=== PATIENT | male | born 1935 | race Asian ===

== ENCOUNTER 2019-01-20 20:28 | Inpatient (IN) | payer BC, MEDICAID ==
[~2019-01-20] VITALS: Ht 165.1 cm; Wt 73.0 kg
--- NOTE | 2019-01-20 20:35 | NUR ---
PT RECEIVED TRACH TO VENT, PT PLACED ON A LEVIN VENT ON SETTINGS GIVEN BY EMT. PT IS ON SETTINGS OF A/C 18, VT 500, PEEP +5, AND 40% FIO2. PORTEX #8 CUFFED TRACH IS PATENT AND SECURE. PT IS AWAKE AND ALERT, PT IS TOLERATING VENT WELL, NO SOB NOTED. BVM AT BEDSIDE, VENT PLUGGED INTO RED OUTLET. SUCTION PRN. WILL CONTINUE TO MONITOR.
--- NOTE | 2019-01-20 20:50 | NUR ---
Dr. Betancourt at bedside for MSE.
[2019-01-20 21:10] LABS: ABG BASE EXCESS 6.4 mmol/L; ABG HCO3 31.1 mmol/L; ABG PCO2 45.8 mmHg (35.0-45.0); ABG SITE LEFT RADIAL; MetHb 0.3 % (0.0-1.5); O2Hb 96.3 % (94.0-97.0); VENT MODE VENT - A/C; VT, ABG 500 mL
[2019-01-20] MEDS ORDERED: PIPE4.5F2 IV (21:22)
[2019-01-20] MEDS ORDERED: PRAV10TA40 GT (21:22)
[2019-01-20] MEDS ORDERED: LOSA50TA39 GT (21:22)
[2019-01-20] MEDS ORDERED: MAGN400O6 PO (21:22)
[2019-01-20] MEDS ORDERED: NA P133E RC (21:22)
[2019-01-20] MEDS ORDERED: METO100T14 GT (21:22)
[2019-01-20] MEDS ORDERED: novolog SUBCUT (21:22)
[2019-01-20] MEDS ORDERED: PANT40TA4 GT (21:22)
[2019-01-20] MEDS ORDERED: ACET-2154 PO (21:22)
[2019-01-20] MEDS ORDERED: DOCU100C36 GT (21:22)
[2019-01-20] MEDS ORDERED: CHLO473M3 PO (21:22)
[2019-01-20] MEDS ORDERED: ENOX40DI SQ (21:22)
[2019-01-20] MEDS ORDERED: BLOO-144 MC (21:22)
[2019-01-20] MEDS ORDERED: BISA10SU61 RC (21:22)
[2019-01-20] MEDS ORDERED: ALBU2.5V38 IH ×2 (21:22)
[2019-01-20 21:26] LABS: BASOPHILS % (AUTO) 0.3 % (0.0-2.0); EOSINOPHILS # (AUTO) 0.1 K/uL (0.0-0.7); EOSINOPHILS % (AUTO) 1.1 % (0.0-7.0); HEMATOCRIT 27.2 % (36.7-47.1); HEMOGLOBIN 8.7 g/dL (12.5-16.3); LYMPHOCYTES # (AUTO) 0.8 K/uL (20.0-40.0); LYMPHOCYTES % (AUTO) 8.4 % (20.5-51.5); MEAN CORPUSCULAR HEMOGLOBIN 30.2 uug (23.8-33.4); MEAN CORPUSCULAR HGB CONC 32 g/dL (32.5-36.3); MEAN CORPUSCULAR VOLUME 94.5 fL (73.0-96.2); MONOCYTES # (AUTO) 0.7 K/uL (2.0-10.0); NEUTROPHILS # (AUTO) 8.4 K/uL (1.8-8.9); NEUTROPHILS % (AUTO) 83.2 % (38.5-71.5); PLATELET COUNT (AUTO) 206 K/uL (152-348); RED BLOOD CELL COUNT(AUTO) 2.88 MIL/uL (4.06-5.63); WHITE BLOOD COUNT (AUTO) 10.1 K/uL (3.6-10.2)
[2019-01-20 21:28] LABS: CARBON DIOXIDE 32 mmol/L (21-32); CHLORIDE 113 mmol/L (98-107); CREATININE 1.4 mg/dL (0.6-1.3); GLUCOSE 132 mg/dL (74-106); POTASSIUM 4.1 mmol/L (3.5-5.1); UREA NITROGEN, BLOOD 49 mg/dL (7-18)
[2019-01-20 21:34] LABS: ALANINE AMINOTRANSFERASE 156 U/L (16-63); ALKALINE PHOSPHATASE 111 U/L (50-136); ASPARTATE AMINOTRANSFERASE 126 U/L (15-37); BILIRUBIN,DIRECT 0.1 mg/dL (0.0-0.2); BILIRUBIN,TOTAL 0.3 mg/dL (0.2-1.0); TOTAL PROTEIN, SERUM 6.1 g/dL (6.4-8.2)
--- NOTE | 2019-01-20 21:34 | NUR ---
ON THE PHONE WITH TYE EDGE FROM [facility] END[facility]ED PT IS FROM SUB ACUTE UNIT RN WILL BE FAXING SOME PAPERWORK CALL BACK NUMBER [phone]
[2019-01-20 21:53] LABS: NEUTROPHILS % (MANUAL) 80 % (42-75)
--- NOTE | 2019-01-20 21:53 | NUR ---
Inserted flores catheter, patient tolerated procedure well, urine sample sent to lab.
[2019-01-20 21:54] LABS: BAND % (MANUAL) 3 % (0-10); EOSINOPHILS % (MANUAL) 1 % (0-8); LYMPHOCYTES % (MANUAL) 8 % (20-40); MONOCYTES % (MANUAL) 8 % (2-10)
--- NOTE | 2019-01-20 22:04 | NUR ---
Called [facility] to page Cornelia Wiley NP.
[2019-01-20 22:09] LABS: *BILIRUBIN,URIN NEGATIVE (NEGATIVE); *CLARITY,URINE SLIGHTLY CLOUDY (CLEAR); *COLOR,URINE YELLOW (YELLOW); *KETONES,URINE NEGATIVE (NEGATIVE); *UROBILINOGEN,URINE 0.2 E.U./dl (NORMAL); LEUKOCYTE ESTERASE ,URINE 2+ (NEGATIVE); NITRITE, URINE NEGATIVE (NEGATIVE); UGLUCOSE NEGATIVE (NEGATIVE)
--- NOTE | 2019-01-20 22:10 | NUR ---
Dr. Betancourt on panel call with Cornelia Wiley NP. Patient accepted for admission, diagnosis:CHF.
[2019-01-20 22:18] LABS: *BLOOD, URINE TRACE (NEGATIVE)
[2019-01-20 22:29] LABS: BACTERIA,URINE FEW /HPF (NONE SEEN); URINE AMORPHOUS URATE MANY /HPF; WBC,URINE 80-100 /HPF (0-3); YEAST,URINE FEW /HPF (NONE SEEN)
[2019-01-20] MEDS ORDERED: HYDROCODONE/APAP 5-325MG TABLET PO PRN (23:15)
[2019-01-20] MEDS ORDERED: MAGNESIUM HYDROXIDE 30 ML LIQUID UDC PO PRN (23:15)
[2019-01-20] MEDS ORDERED: ONDANSETRON 4 MG/2 ML VIAL IV PRN (23:15)
[2019-01-20] MEDS ORDERED: FUROSEMIDE 20 MG/2 ML VIAL IV ONE (23:15)
[2019-01-20] MEDS ORDERED: DEXTROSE 50% 50 ML DISP.SYRIN IV PRN (23:30)
[2019-01-20] MEDS: LOSARTAN POTASSIUM 50 MG TABLET GT SCH (23:30)
[2019-01-20] MEDS ORDERED: INSULIN REGULAR, HUMAN 300 UNIT/3 ML VIAL SQ PRN (23:30)
[2019-01-21] VITALS (8 sets, daily range): BP systolic 118–179; BP diastolic 37–79
--- NOTE | 2019-01-21 00:15 | NUR ---
Report given to Sandy EDGE CHARLETTE.
--- NOTE | 2019-01-21 01:05 | NUR ---
Received patient from ER. Patient is alert and awake, eyes open but unable to speak because patient is Trach to Vent dependent. Vent setting is as follows: AC setting of 18, TV 500, FiO2 40% and peep of 5. PICC line on the left upper arm, 2 out of the 3 lines are patent and intact. TELE Sinus Marty. Patient has a GTUBE on the left upper abdomen. Abdomen is soft and non tender. custodial assessment done. Skin is intact however redness on the groin. Scrotum is red and swollen. 1+ pitting edema on bilateral arms. Safety initiated. Call light within reach. Will continue to monitor.
[2019-01-21] MEDS ORDERED: CEFTRIAXONE 1 G in IV DEXTROSE 5% 50 ML IV SCH (01:30)
[2019-01-21] MEDS: ALBUTEROL SULFATE 2.5 MG/3 ML NEBU IH SCH ×4 (02:00→19:05)
[2019-01-21] MEDS ORDERED: CEFTRIAXONE 1 G VIAL ONE (02:12)
[2019-01-21] MEDS: ACETAMINOPHEN 325 MG TABLET PO PRN (05:35)
[2019-01-21] MEDS: BLOOD SUGAR DIAGNOSTIC 1 EACH STRIP VI SCH ×4 (05:46→17:39)
--- NOTE | 2019-01-21 06:08 | NUR ---
Patient was restless t/o shift. Daughter at bedside. Denies pain. In no acute distress noted. Good urine output. Noted 1+ pitting edema in the lower ext and groin area. TELE remains SB at 53. Settings remains at AC 18, TV 500, FiO2 40% and PEEP of 5. GTube is flushing well with very minimal residual. Safety and comfort measures maintained T/O shift. All meds given as ordered. All needs met.
[2019-01-21 06:31] LABS: BASOPHILS % (AUTO) 0.4 % (0.0-2.0); EOSINOPHILS # (AUTO) 0.1 K/uL (0.0-0.7); EOSINOPHILS % (AUTO) 1.5 % (0.0-7.0); HEMATOCRIT 25.9 % (36.7-47.1); HEMOGLOBIN 8.5 g/dL (12.5-16.3); LYMPHOCYTES # (AUTO) 0.8 K/uL (20.0-40.0); LYMPHOCYTES % (AUTO) 8.5 % (20.5-51.5); MEAN CORPUSCULAR HEMOGLOBIN 31.5 uug (23.8-33.4); MEAN CORPUSCULAR HGB CONC 33 g/dL (32.5-36.3); MEAN CORPUSCULAR VOLUME 95.6 fL (73.0-96.2); MONOCYTES # (AUTO) 0.7 K/uL (2.0-10.0); MONOCYTES % (AUTO) 7.5 % (0.0-11.0); NEUTROPHILS # (AUTO) 7.5 K/uL (1.8-8.9); NEUTROPHILS % (AUTO) 82.1 % (38.5-71.5); PLATELET COUNT (AUTO) 206 K/uL (152-348); RED BLOOD CELL COUNT(AUTO) 2.71 MIL/uL (4.06-5.63); WHITE BLOOD COUNT (AUTO) 9.2 K/uL (3.6-10.2)
[2019-01-21 07:14] LABS: CARBON DIOXIDE 37 mmol/L (21-32); CHLORIDE 113 mmol/L (98-107); CHOLESTEROL 79 mg/dL (<200); CREATININE 1.2 mg/dL (0.6-1.3); GLUCOSE 104 mg/dL (74-106); HDL CHOLESTEROL 29 mg/dL (40-60); PHOSPHOROUS 3.1 mg/dL (2.5-4.9); POTASSIUM 3.5 mmol/L (3.5-5.1); TRIGLYCERIDES 102 MG/DL (30-150); UREA NITROGEN, BLOOD 46 mg/dL (7-18)
--- NOTE | 2019-01-21 07:20 | NUR ---
Received patient in bed awake. Accompanied by family member at the bedside. Pt. exhibits no signs of respiratory distress, discomfort, or pain in the moment. Sinus rhythm on monitor. Safety precautions in place. Bed low, locked, with side rails up x 2. Call light within reach. Will continue to monitor patient throughout shift.
[2019-01-21] MEDS ORDERED: PANTOPRAZOLE SODIUM 40 MG TABLET.DR PO SCH (09:00)
[2019-01-21] MEDS ORDERED: METOPROLOL TARTRATE 50 MG TABLET PO ONE (09:00)
[2019-01-21] MEDS ORDERED: PANTOPRAZOLE ORAL SUSPENSION 40 MG SUSPDR.PKT PO SCH (09:00)
[2019-01-21] MEDS ORDERED: PIPERACILLIN SODIUM/TAZOBACTAM 3.375 G in IV DEXTROSE 5% 50 ML IV SCH (09:15)
[2019-01-21] MEDS: CHLORHEXIDINE GLUCONATE 15 ML MOUTHWASH MM SCH ×2 (09:41→16:39)
[2019-01-21] MEDS: ENOXAPARIN SODIUM 40 MG/0.4 ML DISP.SYRIN SQ SCH (09:44)
--- NOTE | 2019-01-21 10:00 | NUR ---
Noted bladder distention, scrotal edema, bladder scan done. 485mL urine retention. Relayed to Cornelia Wiley NP with orders for flores catheter placement. Blood pressure high but heart rate in 50s. Lopressor held but hydralazine IV given instead for increased BP, per doctor's order.
[2019-01-21] MEDS ORDERED: hydrALAZINE HCL 20 MG/1 ML VIAL IV ONE (10:15)
[2019-01-21] MEDS ORDERED: hydrALAZINE HCL 20 MG/1 ML VIAL IV SCH (11:00)
--- NOTE | 2019-01-21 12:00 | NUR ---
Tube feeding initiated at 60mL/hr Glucerna 1.2.
[2019-01-21] MEDS: PIPERACILLIN/TAZO 2.25 G in IV DEXTROSE 5% 50 ML IV SCH ×2 (12:20→17:35)
[2019-01-21] MEDS: GLUCERNA 1.2 1000ML LIQUID GT PRN (12:20)
[2019-01-21] MEDS: ALBUMIN HUMAN 25% 25 GM in PREMIXED 1 EACH IV SCH ×2 (15:33→16:38)
--- NOTE | 2019-01-21 18:47 | NUR ---
Patient resting in comfortable position with eyes closed. No respiratory distress or acute distress noted. No change in patient condition. Sinus rhythm on monitor HR: 75 bpm. Vital signs within normal. Routines and orders carried out. Antibiotics administered. Continue with plan of care with regard to CHF and respiratory care.
--- NOTE | 2019-01-21 19:10 | NUR ---
PT RECEIVED ON CONTINUOUS VENT AC 18 VT 500 PEEP 5 FIO2 40%. TRACH IN PLACED AND SECURED WITH TRACH TIE. PT AWAKE AND ALERT. IN LINE TX GIVEN WITH UD ALBUTEROL ORDERED. SUCTION SMALL AMOUNT THICK WHITE SECRETIONS. AMBU BAG AT BEDSIDE. VENT CHECKED, ALARMS WORKING WELL AND AUDIBLE. NO DISTRESS NOTED AT THIS TIME.
--- NOTE | 2019-01-21 20:00 | NUR ---
Received patient alert and awake, eyes open but unable to speak because patient is Trach to Vent dependent. Family at bedside. Vent setting is as follows: AC setting of 18, TV 500, FiO2 40% and peep of 5. PICC line on the left upper arm, 2 out of the 3 lines are patent and intact. TELE SR. Patient has a GTUBE on the left upper abdomen, Glucerna 1.2 at 60 cc/hr. Tolerating it well. Abdomen is soft and non tender. FDC assessment done. Skin is intact however redness on the groin. Scrotum is red and swollen. 2+ generalized pitting edema. Safety initiated. Call light within reach. Will continue to monitor.
[2019-01-21] MEDS: DOCUSATE SODIUM 100 MG CAPSULE PO SCH (20:42)
[2019-01-21] MEDS: LOSARTAN POTASSIUM 50 MG TABLET GT SCH (20:42)
[2019-01-22] VITALS (8 sets, daily range): BP systolic 121–171; BP diastolic 54–72
[2019-01-22] MEDS: ALBUTEROL SULFATE 2.5 MG/3 ML NEBU IH SCH (00:20)
[2019-01-22] MEDS: PIPERACILLIN/TAZO 2.25 G in IV DEXTROSE 5% 50 ML IV SCH ×2 (00:49→05:58)
[2019-01-22] MEDS: BLOOD SUGAR DIAGNOSTIC 1 EACH STRIP VI SCH ×5 (01:07→23:57)
[2019-01-22] MEDS: ACETAMINOPHEN 325 MG TABLET PO PRN (03:03)
[2019-01-22] MEDS ORDERED: MAGNESIUM HYDROXIDE 30 ML LIQUID UDC GT PRN (06:23)
[2019-01-22] MEDS ORDERED: ACETAMINOPHEN 650 MG/20.3 ML LIQUID UDC GT PRN (06:30)
[2019-01-22 06:36] LABS: BASOPHILS # (AUTO) 0.1 K/uL (0.0-8.0); BASOPHILS % (AUTO) 1.1 % (0.0-2.0); EOSINOPHILS # (AUTO) 0.2 K/uL (0.0-0.7); EOSINOPHILS % (AUTO) 2.8 % (0.0-7.0); HEMOGLOBIN 8.4 g/dL (12.5-16.3); LYMPHOCYTES # (AUTO) 0.8 K/uL (20.0-40.0); LYMPHOCYTES % (AUTO) 8.9 % (20.5-51.5); MEAN CORPUSCULAR HEMOGLOBIN 30.6 uug (23.8-33.4); MEAN CORPUSCULAR HGB CONC 32 g/dL (32.5-36.3); MEAN CORPUSCULAR VOLUME 95.4 fL (73.0-96.2); MONOCYTES # (AUTO) 0.8 K/uL (2.0-10.0); MONOCYTES % (AUTO) 9.8 % (0.0-11.0); NEUTROPHILS # (AUTO) 6.6 K/uL (1.8-8.9); NEUTROPHILS % (AUTO) 77.4 % (38.5-71.5); PLATELET COUNT (AUTO) 157 K/uL (152-348); RED BLOOD CELL COUNT(AUTO) 2.73 MIL/uL (4.06-5.63); WHITE BLOOD COUNT (AUTO) 8.5 K/uL (3.6-10.2)
--- NOTE | 2019-01-22 06:48 | NUR ---
Patient slept intermittently t/o shift. No acute distress noted. Remains on the same Vent settings: AC setting of 18, TV 500, FiO2 40% and peep of 5. 3 lumen PICC line on the left upper arm, patent and intact. TELE SB at 56. Generalized edema is prominent in the lower abdomen and bilateral lower extremities. Patient is on GTUBE feeding, tolerating well. Yarbrough draining yellow cloudy urine. Patient made 1 loose large BM. Turned and repositioned. Yarbrough care provided. Safety and comfort measures maintained t/o shift. Vital signs stable. All meds given as ordered. All needs met.
[2019-01-22] MEDS: PANTOPRAZOLE ORAL SUSPENSION 40 MG SUSPDR.PKT GT SCH (06:49)
[2019-01-22 06:52] LABS: MAGNESIUM 1.9 mg/dL (1.8-2.4); PHOSPHOROUS 2.8 mg/dL (2.5-4.9); POTASSIUM 3.7 mmol/L (3.5-5.1)
[2019-01-22] MEDS: ALBUTEROL SULFATE 2.5 MG/3 ML NEBU NEB SCH ×3 (08:06→19:47)
--- NOTE | 2019-01-22 08:06 | NUR ---
PT REC'D ON LEVIN VENT TOLERATING CURRENT VENT SETTINGS WELL. TRACH PORTEX [address] PATENT AND SECURE. SXN'ING Q2 AND PRN. INLINE NEB TX'S TO BE GIVEN PER MD ORDER. VENT ALARMS AUDIBLE CHECKED AND RESET. BVM AND BACK-UP TRACH AT BEDSIDE.
--- NOTE | 2019-01-22 08:10 | NUR ---
PATIEN AWAKE ALERT AND ABLE TO MAKE NEEDS KNOWN TO STAFF WITH FAMILY AT BEDSIDE. SLIGHT SOB ON EXERTION. VENT SETS AT 18-40-500-5, PORTEX 8. PATIENT SATURATING 100%.
[2019-01-22] MEDS: ENOXAPARIN SODIUM 40 MG/0.4 ML DISP.SYRIN SQ SCH (08:15)
[2019-01-22] MEDS: CHLORHEXIDINE GLUCONATE 15 ML MOUTHWASH MM SCH ×2 (08:16→16:43)
[2019-01-22] MEDS: Z GUARD REMEDY PASTE 57 GM TUBE TOP PRN (08:17)
--- NOTE | 2019-01-22 10:00 | NUR ---
SEEN NBY DR GARCIA NO NEW ORDERS. COMPLETE BED BATH GIVEN. NOTED PICC LINE CLOGGED, CARLOS LOVE SAID OK TO CALL PICC LINE STAFF TO UNCLOGGED
[2019-01-22] MEDS: GLUCERNA 1.2 1000ML LIQUID GT PRN (12:30)
[2019-01-22] MEDS ORDERED: ALTEPLASE 2 MG VIAL XX STA (12:50)
--- NOTE | 2019-01-22 14:01 | NUR ---
CLOGGED PICC LUE PICC CLOGGED AT ALL THREE PORTS. CATHFLO ADMINISTERED VIA STOPCOCK METHOD AND ALLOWED 30 MINUTES TO WORK. AFTERWARDS, CATHFLO WAS ASPIRATED AND ALL PORTS FLUSHED WITH NS. BLOOD RETURN NOTED AT ALL THREE PORTS AND FLUSHING WITHOUT RESISTANCE. RN MADE AWARE AND ADVISED TO CONTINUED TO FLUSH WITH NS FREQUENTLY TO PREVENT FURTHER CLOGGING.
[2019-01-22] MEDS: PIPERACILLIN/TAZOBACTAM/D5W 3.375 G in IV DEXTROSE 5% 50 ML IV SCH ×2 (14:04→21:44)
--- NOTE | 2019-01-22 14:30 | NUR ---
PICC LINE UNCLOGGED BY PICC LINE STAFF WITH GOOD RESULTS
--- NOTE | 2019-01-22 15:03 | NUR ---
LINNETTE GARCIA CALLED, PATIENT POSITIVE TO MRSA BOTH NARES, CASHIER GREETER IVNA IN WITH ORDERS. ISOLATION PRECAUTION AND EDUCATION GIVEN TO FAMILY. WILL START PATIENT ON BACTROBAN
[2019-01-22] MEDS: MUPIROCIN 2% OINT 22 GM TUBE NS SCH ×2 (16:42→20:02)
--- NOTE | 2019-01-22 19:47 | NUR ---
PT RECEIVED TRACH TO VENT ON CMV, PORTEX #8 CUFFED TRACH IS PATENT AND SECURE.PT IS ON A LEVIN VENT ON SETTINGS OF A/C 18, VT 500, PEEP +5, AND 40% FIO2. VENT PARAMETERS AND ALARMS CHECKED, ALARMS ARE AUDIBLE. IN-LINE TX TOLERATED WELL, NO ADVERSE REACTION NOTED. PT IS TOLERATING VENT WELL, NO SOB NOTED. BVM AT BEDSIDE, VENT PLUGGED INTO RED OUTLET. SUCTION PRN. WILL CONTINUE TO MONITOR.
--- NOTE | 2019-01-22 20:00 | NUR ---
Received patient lying in bed. AAOX2-3. Tracheostomy in place with vent sets at 18-500-40-5, saturating 100%. In no acute distress. Denies any of pain or SOB. GT intact and patent. Tolerating Glucerna 1.2 At 60cc/hr. HOB kept elevated. PICC line on left upper arm intact. IVF TKO. NSR on tele at 67/min. Yarbrough catheter intact and draining via gravity. Reposition patient for comfort. daughter at bedside. Continue to monitor.
[2019-01-22] MEDS: DOCUSATE SODIUM 100 MG CAPSULE PO SCH (20:01)
[2019-01-22] MEDS: LOSARTAN POTASSIUM 50 MG TABLET GT SCH (20:01)
[2019-01-22] MEDS ORDERED: MUPIROCIN 2% OINT 22 GM TUBE NS SCH (21:00)
--- NOTE | 2019-01-22 21:43 | NUR ---
Duplicate order for Bactroban ointment.
[2019-01-23] VITALS (7 sets, daily range): BP systolic 136–178; BP diastolic 43–79
[2019-01-23] MEDS: ALBUTEROL SULFATE 2.5 MG/3 ML NEBU NEB SCH ×4 (01:28→19:11)
[2019-01-23] MEDS: PANTOPRAZOLE ORAL SUSPENSION 40 MG SUSPDR.PKT GT SCH (05:06)
[2019-01-23] MEDS: PIPERACILLIN/TAZOBACTAM/D5W 3.375 G in IV DEXTROSE 5% 50 ML IV SCH ×3 (05:06→21:22)
[2019-01-23] MEDS: BLOOD SUGAR DIAGNOSTIC 1 EACH STRIP VI SCH ×4 (05:29→23:53)
--- NOTE | 2019-01-23 06:30 | NUR ---
Remains AOX2-3. Able to make some needs known. In no acute distress. Tolerating GT feeding and flushing. HOB kept elevated. PICC line on left upper arm remains intact. IVF TKO. No adverse reaction noted from IV ABX. NSR on tele at 70/min. Yarbrough catheter intact and draining via gravity. Reposition patient for comfort. Daughter remains at bedside. Safety measure maintained.
[2019-01-23 07:50] LABS: BASOPHILS # (AUTO) 0.1 K/uL (0.0-8.0); BASOPHILS % (AUTO) 0.7 % (0.0-2.0); EOSINOPHILS # (AUTO) 0.3 K/uL (0.0-0.7); EOSINOPHILS % (AUTO) 3.3 % (0.0-7.0); HEMATOCRIT 27.4 % (36.7-47.1); HEMOGLOBIN 8.6 g/dL (12.5-16.3); LYMPHOCYTES # (AUTO) 0.7 K/uL (20.0-40.0); MEAN CORPUSCULAR HEMOGLOBIN 30.3 uug (23.8-33.4); MEAN CORPUSCULAR HGB CONC 32 g/dL (32.5-36.3); MEAN CORPUSCULAR VOLUME 96.1 fL (73.0-96.2); MONOCYTES # (AUTO) 0.9 K/uL (2.0-10.0); MONOCYTES % (AUTO) 10.8 % (0.0-11.0); NEUTROPHILS # (AUTO) 6.4 K/uL (1.8-8.9); NEUTROPHILS % (AUTO) 77.2 % (38.5-71.5); PLATELET COUNT (AUTO) 196 K/uL (152-348); RED BLOOD CELL COUNT(AUTO) 2.85 MIL/uL (4.06-5.63); WHITE BLOOD COUNT (AUTO) 8.3 K/uL (3.6-10.2)
--- NOTE | 2019-01-23 08:00 | NUR ---
AWAKE ALERT AND ABLE TO MADE NEEDS KNOW THROUGH SIGNS, FAMILY AT BEDSIDE AT ALL TIMES. NO CHANGE ON THE VENT SETTINGS SATURATING 98%. SR ON MONITOR
[2019-01-23 08:12] LABS: CARBON DIOXIDE 38 mmol/L (21-32); CHLORIDE 111 mmol/L (98-107); CREATININE 0.8 mg/dL (0.6-1.3); GLUCOSE 133 mg/dL (74-106); POTASSIUM 3.9 mmol/L (3.5-5.1); UREA NITROGEN, BLOOD 25 mg/dL (7-18)
[2019-01-23] MEDS: ENOXAPARIN SODIUM 40 MG/0.4 ML DISP.SYRIN SQ SCH (09:25)
[2019-01-23] MEDS: CHLORHEXIDINE GLUCONATE 15 ML MOUTHWASH MM SCH ×2 (09:25→16:53)
[2019-01-23] MEDS: Z GUARD REMEDY PASTE 57 GM TUBE TOP PRN ×2 (09:26→20:55)
[2019-01-23] MEDS: MUPIROCIN 2% OINT 22 GM TUBE NS SCH ×2 (09:26→20:55)
[2019-01-23] MEDS: GLUCERNA 1.2 1000ML LIQUID GT PRN (11:59)
--- NOTE | 2019-01-23 12:00 | NUR ---
SEEN BY DR GARCIA FOR PULMO FOLLOW-UP NO NEW ORDERS. CONTINUE PLAN OF CARE
[2019-01-23] MEDS: HYDROCODONE/APAP 5-325MG TABLET GT PRN (16:29)
--- NOTE | 2019-01-23 17:10 | NUR ---
MEDICATED WITH NORCO FOR 8/10 ABDOMINAL PAIN OBSERVED.
--- NOTE | 2019-01-23 19:30 | NUR ---
Report received. Patient AA, follows commands appropriately. With trache to vent: EG=148ta, AC=18, FIO2=40%, PEEP=5 cm. NAD noted. Family at bedside; plan of care discussed. On contact isolation for MRSA nares. Assessment completed. Addendum: 01/24/19 at 0053 by MATTHEW DEL REAL RN Amended: Links added.
[2019-01-23] MEDS: LOSARTAN POTASSIUM 50 MG TABLET GT SCH (20:54)
[2019-01-23] MEDS: DOCUSATE SODIUM 100 MG CAPSULE PO SCH (20:54)
[2019-01-24] VITALS (12 sets, daily range): BP systolic 126–154; BP diastolic 50–78
[2019-01-24] MEDS: ALBUTEROL SULFATE 2.5 MG/3 ML NEBU NEB SCH ×4 (00:51→22:12)
[2019-01-24] MEDS: PIPERACILLIN/TAZOBACTAM/D5W 3.375 G in IV DEXTROSE 5% 50 ML IV SCH ×3 (05:28→21:33)
[2019-01-24] MEDS: PANTOPRAZOLE ORAL SUSPENSION 40 MG SUSPDR.PKT GT SCH (05:28)
[2019-01-24] MEDS: BLOOD SUGAR DIAGNOSTIC 1 EACH STRIP VI SCH ×3 (05:34→17:30)
--- NOTE | 2019-01-24 06:15 | NUR ---
Transferred to CCU 4 as CHARLETTE overflow. Stable on current vent settings. Tolerating GT feedings well. Contact isolation for MRSA nares maintained.
[2019-01-24] MEDS: CHLORHEXIDINE GLUCONATE 15 ML MOUTHWASH MM SCH ×2 (08:14→17:29)
[2019-01-24] MEDS: MUPIROCIN 2% OINT 22 GM TUBE NS SCH ×2 (08:14→21:15)
[2019-01-24 08:17] LABS: BASOPHILS % (AUTO) 0.4 % (0.0-2.0); EOSINOPHILS # (AUTO) 0.4 K/uL (0.0-0.7); EOSINOPHILS % (AUTO) 3.4 % (0.0-7.0); HEMATOCRIT 27.7 % (36.7-47.1); HEMOGLOBIN 8.6 g/dL (12.5-16.3); LYMPHOCYTES # (AUTO) 0.9 K/uL (20.0-40.0); LYMPHOCYTES % (AUTO) 7.6 % (20.5-51.5); MEAN CORPUSCULAR HEMOGLOBIN 30.1 uug (23.8-33.4); MEAN CORPUSCULAR HGB CONC 31 g/dL (32.5-36.3); MEAN CORPUSCULAR VOLUME 96.3 fL (73.0-96.2); MONOCYTES # (AUTO) 1.1 K/uL (2.0-10.0); MONOCYTES % (AUTO) 9.3 % (0.0-11.0); NEUTROPHILS # (AUTO) 9.5 K/uL (1.8-8.9); NEUTROPHILS % (AUTO) 79.3 % (38.5-71.5); PLATELET COUNT (AUTO) 181 K/uL (152-348); RED BLOOD CELL COUNT(AUTO) 2.87 MIL/uL (4.06-5.63); WHITE BLOOD COUNT (AUTO) 11.9 K/uL (3.6-10.2)
[2019-01-24] MEDS: ENOXAPARIN SODIUM 40 MG/0.4 ML DISP.SYRIN SQ SCH (08:23)
[2019-01-24 08:24] LABS: CARBON DIOXIDE 36 mmol/L (21-32); CHLORIDE 109 mmol/L (98-107); CREATININE 0.8 mg/dL (0.6-1.3); GLUCOSE 112 mg/dL (74-106); POTASSIUM 4.4 mmol/L (3.5-5.1); UREA NITROGEN, BLOOD 21 mg/dL (7-18)
--- NOTE | 2019-01-24 09:00 | NUR ---
Nursing Note: Seen and evaluated by Dr. Null. No new orders
--- NOTE | 2019-01-24 10:00 | NUR ---
Nursing Note: Received phone call from Case management regarding possible discharge to [facility].
--- NOTE | 2019-01-24 11:00 | NUR ---
Nursing Note: Seen and evaluated by Mikel Lopez ROTARY SHEAR WORKER HELPER. New order to repeat BNP and Lasix 40 x 1
[2019-01-24] MEDS: GLUCERNA 1.2 1000ML LIQUID GT PRN (11:57)
[2019-01-24] MEDS ORDERED: FUROSEMIDE 40 MG/4 ML VIAL IV ONE (12:00)
--- NOTE | 2019-01-24 12:00 | NUR ---
Nursing Note: Family requesting to go to Subacute Unit at [facility]. Relayed to administration.
--- NOTE | 2019-01-24 13:00 | NUR ---
Nursing Note: BNP result relayed to CARLOS Lopez. Awaiting Cardiology consult.
--- NOTE | 2019-01-24 15:05 | NUR ---
Nursing Note: Seen by Dr. Leiva cardiology. Per . Possible HF due to possible endocarditis
--- NOTE | 2019-01-24 19:30 | NUR ---
Report received. Patient AA, follows commands, on contact isolation for MRSA nares. With trache to vent: AC=18, BI=671jh, PEEP=5 cm, FIO2=40%. NAD noted. Assessment completed. Patient's son at bedside; plan of care discussed. Addendum: 01/24/19 at 2313 by MATTHEW DEL REAL RN Amended: Links added. Addendum: 01/24/19 at 2314 by MATTHEW DEL REAL RN Amended: Links added.
--- NOTE | 2019-01-24 20:00 | NUR ---
Cleaned for small liquid, soft brown, yellow BM. Skin care provided. Patient cooperative. Addendum: 01/24/19 at 2314 by MATTHEW DEL REAL RN Amended: Links added.
[2019-01-24] MEDS: DOCUSATE SODIUM 100 MG CAPSULE PO SCH (21:00)
[2019-01-24] MEDS: FUROSEMIDE 40 MG/4 ML VIAL IV SCH (21:14)
[2019-01-24] MEDS: LOSARTAN POTASSIUM 50 MG TABLET GT SCH (21:14)
[2019-01-25 00:31] VITALS: BP 150/62
[2019-01-25] MEDS: BLOOD SUGAR DIAGNOSTIC 1 EACH STRIP VI SCH ×4 (00:41→18:03)
[2019-01-25] MEDS: ALBUTEROL SULFATE 2.5 MG/3 ML NEBU NEB SCH ×4 (03:09→19:18)
--- NOTE | 2019-01-25 03:27 | NUR ---
PT ON CONT LEVIN VENT WITH PORTEX # [address] AND SECURED, WITH SAME CURRENT VENT SETTINGS, PT DOES ASSIST AT TIMES, PT AWAKE AT TIMES, WITH FAMILY MEMBER AT BEDSIDE AT [facility], ALL VENT ALARMS GOOD, SUCTIONED LIGHT PALE YELL TINGE SECRETIONS, CHECK CUFF, CHANGE HME, TRACH CARE DONE, NO VENT CHANGES MADE, NEB INLINE X 2 WITH ALBUTEROL TOLL WELL, PT WITH NO SOB NOTED, PT STABLE, AMBU BAG AT BEDSIDE.Max KAPADIAP Addendum: 01/25/19 at 0330 by MINDI SNYDER RT Amended: Links added.
[2019-01-25 04:00] VITALS: BP 140/54
[2019-01-25] MEDS: PANTOPRAZOLE ORAL SUSPENSION 40 MG SUSPDR.PKT GT SCH (05:37)
[2019-01-25] MEDS: PIPERACILLIN/TAZOBACTAM/D5W 3.375 G in IV DEXTROSE 5% 50 ML IV SCH ×2 (05:37→13:10)
[2019-01-25 06:33] LABS: BASOPHILS # (AUTO) 0.1 K/uL (0.0-8.0); BASOPHILS % (AUTO) 0.9 % (0.0-2.0); EOSINOPHILS # (AUTO) 0.5 K/uL (0.0-0.7); EOSINOPHILS % (AUTO) 6.1 % (0.0-7.0); HEMATOCRIT 25.8 % (36.7-47.1); HEMOGLOBIN 8.5 g/dL (12.5-16.3); LYMPHOCYTES # (AUTO) 0.8 K/uL (20.0-40.0); LYMPHOCYTES % (AUTO) 9.9 % (20.5-51.5); MEAN CORPUSCULAR HEMOGLOBIN 31.5 uug (23.8-33.4); MEAN CORPUSCULAR HGB CONC 33 g/dL (32.5-36.3); MEAN CORPUSCULAR VOLUME 95.6 fL (73.0-96.2); MONOCYTES # (AUTO) 0.8 K/uL (2.0-10.0); MONOCYTES % (AUTO) 10.1 % (0.0-11.0); NEUTROPHILS # (AUTO) 5.6 K/uL (1.8-8.9); PLATELET COUNT (AUTO) 184 K/uL (152-348); RED BLOOD CELL COUNT(AUTO) 2.69 MIL/uL (4.06-5.63); WHITE BLOOD COUNT (AUTO) 7.6 K/uL (3.6-10.2)
--- NOTE | 2019-01-25 06:34 | NUR ---
Stable on the same ventilator settings. Diurese well with Lasix IV. Had 2 BMs during the shift; tolerates care but still mildly anxious at times. Contact isolation for MRSA nares maintained.
[2019-01-25 06:49] LABS: CHLORIDE 107 mmol/L (98-107); CREATININE 0.9 mg/dL (0.6-1.3); GLUCOSE 102 mg/dL (74-106); PHOSPHOROUS 3.3 mg/dL (2.5-4.9); POTASSIUM 4.4 mmol/L (3.5-5.1); UREA NITROGEN, BLOOD 20 mg/dL (7-18)
[2019-01-25 06:53] LABS: CARBON DIOXIDE 40 mmol/L (21-32)
[2019-01-25 08:00] VITALS: BP 141/59
[2019-01-25] MEDS ORDERED: LOPERAMIDE HCL 1 MG/5 ML UDC GT PRN (09:00)
--- NOTE | 2019-01-25 09:00 | NUR ---
Patient noted to be AAOx1. patient upset angry refusing nursing care and pushing staff away when attempts to change pulse oxymeter due to continuos alarming. Pt's at bedside, patient refusing care and becoming increasingly aggressive.
[2019-01-25] MEDS: ASPIRIN 81 MG TAB.CHEW GT SCH (09:06)
[2019-01-25] MEDS: FUROSEMIDE 40 MG/4 ML VIAL IV SCH ×2 (09:06→21:11)
[2019-01-25] MEDS: ENOXAPARIN SODIUM 40 MG/0.4 ML DISP.SYRIN SQ SCH (09:08)
[2019-01-25] MEDS: MUPIROCIN 2% OINT 22 GM TUBE NS SCH ×2 (09:11→21:11)
[2019-01-25] MEDS: CHLORHEXIDINE GLUCONATE 15 ML MOUTHWASH MM SCH ×2 (09:11→16:33)
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
[2019-01-25 12:10] VITALS: BP 156/48
[2019-01-25] MEDS: GLUCERNA 1.2 1000ML LIQUID GT PRN (13:33)
[2019-01-25 18:27] VITALS: BP 144/62
--- NOTE | 2019-01-25 19:30 | NUR ---
Report received. Patient AAO able to communicate by gestures. With trache to vent; settings unchanged. NAD noted. Family at bedside. Assessment done; see flow sheet for details.
[2019-01-25] MEDS ORDERED: RIFAXIMIN 200 MG TABLET PO SCH (19:45)
[2019-01-25 20:08] VITALS: BP 147/62
[2019-01-25] MEDS: DOCUSATE SODIUM 100 MG CAPSULE PO SCH (21:00)
[2019-01-25] MEDS: LOSARTAN POTASSIUM 50 MG TABLET GT SCH (21:12)
[2019-01-25] MEDS: ACIDOPHILUS/BULGARICUS CHEW TAB PO SCH (21:17)
[2019-01-25] MEDS: AMPICILLIN IV 1 G in IV NORMAL SALINE 50 ML IV SCH (21:17)
--- NOTE | 2019-01-25 22:00 | NUR ---
PM care rendered; skin care provided.
[2019-01-26] VITALS: BP 132/54
--- NOTE | 2019-01-26 | NUR ---
Accucheck=66. Asymptomatic. GT feedings tolerated well.
[2019-01-26] MEDS: BLOOD SUGAR DIAGNOSTIC 1 EACH STRIP VI SCH ×3 (00:20→12:40)
[2019-01-26] MEDS: ALBUTEROL SULFATE 2.5 MG/3 ML NEBU NEB SCH ×3 (00:59→13:42)
--- NOTE | 2019-01-26 03:03 | NUR ---
Accucheck uqlistqj=[id number]. Patient sleeping, easily arouses to name. NAD noted.
[2019-01-26 04:00] VITALS: BP 134/74
[2019-01-26] MEDS: HYDROCODONE/APAP 5-325MG TABLET GT PRN (04:24)
[2019-01-26] MEDS: PANTOPRAZOLE ORAL SUSPENSION 40 MG SUSPDR.PKT GT SCH (05:06)
[2019-01-26] MEDS: ACIDOPHILUS/BULGARICUS CHEW TAB PO SCH ×2 (05:06→14:34)
[2019-01-26] MEDS: AMPICILLIN IV 1 G in IV NORMAL SALINE 50 ML IV SCH ×2 (05:06→14:34)
--- NOTE | 2019-01-26 06:05 | NUR ---
Patient appears comfortable in bed. In no acute distress. Tolerating GT feeding and flushing. HOB kept elevated. PICC line on left upper arm remains intact. IVF TKO. No adverse reaction noted from IV ABX. NSR on tele at 82/min. Yarbrough catheter intact and draining via gravity. Rectal tube remains intact. Reposition patient for comfort. Daughter at bedside. Isolation precaution and safety measure maintained.
[2019-01-26 07:32] VITALS: BP 153/63
--- NOTE | 2019-01-26 08:00 | NUR ---
Orientation with KELY Lopez. All charting and documentation notes reviewed by KELY Lopez.
[2019-01-26 08:08] LABS: BASOPHILS # (AUTO) 0.1 K/uL (0.0-8.0); BASOPHILS % (AUTO) 0.8 % (0.0-2.0); EOSINOPHILS # (AUTO) 0.3 K/uL (0.0-0.7); EOSINOPHILS % (AUTO) 4.6 % (0.0-7.0); HEMATOCRIT 25.1 % (36.7-47.1); HEMOGLOBIN 8.2 g/dL (12.5-16.3); LYMPHOCYTES # (AUTO) 0.9 K/uL (20.0-40.0); LYMPHOCYTES % (AUTO) 12.3 % (20.5-51.5); MEAN CORPUSCULAR HEMOGLOBIN 30.6 uug (23.8-33.4); MEAN CORPUSCULAR HGB CONC 33 g/dL (32.5-36.3); MONOCYTES # (AUTO) 0.9 K/uL (2.0-10.0); MONOCYTES % (AUTO) 11.9 % (0.0-11.0); NEUTROPHILS # (AUTO) 5.4 K/uL (1.8-8.9); NEUTROPHILS % (AUTO) 70.4 % (38.5-71.5); PLATELET COUNT (AUTO) 175 K/uL (152-348); RED BLOOD CELL COUNT(AUTO) 2.67 MIL/uL (4.06-5.63); WHITE BLOOD COUNT (AUTO) 7.6 K/uL (3.6-10.2)
[2019-01-26 08:16] LABS: CARBON DIOXIDE 37 mmol/L (21-32); CHLORIDE 102 mmol/L (98-107); CREATININE 0.9 mg/dL (0.6-1.3); GLUCOSE 110 mg/dL (74-106); POTASSIUM 4.3 mmol/L (3.5-5.1); UREA NITROGEN, BLOOD 20 mg/dL (7-18)
[2019-01-26] MEDS: CHLORHEXIDINE GLUCONATE 15 ML MOUTHWASH MM SCH (08:50)
[2019-01-26] MEDS: ASPIRIN 81 MG TAB.CHEW GT SCH (08:50)
[2019-01-26] MEDS: ENOXAPARIN SODIUM 40 MG/0.4 ML DISP.SYRIN SQ SCH (08:51)
[2019-01-26] MEDS: FUROSEMIDE 40 MG/4 ML VIAL IV SCH (08:51)
[2019-01-26] MEDS: MUPIROCIN 2% OINT 22 GM TUBE NS SCH (08:53)
--- NOTE | 2019-01-26 10:38 | NUR ---
Spoke with Vincenzo GONZALEZ, full report given. MD made aware of patient's restlessness and family's request for ativan and sleep medications. No new orders received at this time.
--- NOTE | 2019-01-26 11:05 | NUR ---
CARLOS Loya here to see pt. RESTAURANT CASHIER stated that it was okay to dc telemetry box.
[2019-01-26 11:41] VITALS: BP 151/64
[2019-01-26] MEDS: GLUCERNA 1.2 1000ML LIQUID GT PRN (12:49)
--- NOTE | 2019-01-26 13:09 | NUR ---
spa technician at bedside for ultrasound of the scrotum.
[2019-01-26] MEDS ORDERED: ASPI-605 GT (13:59)
[2019-01-26] MEDS ORDERED: AMPI1VIA IV (13:59)
[2019-01-26] MEDS ORDERED: FURO-151 GT (13:59)
[2019-01-26 15:09] VITALS: BP 149/49
--- NOTE | 2019-01-26 17:15 | NUR ---
Pt discharged to [facility]. Full telephone SBAR report given to RN Narendra and full SBAR report given to ambulance and the RN. Discharge instructions provided and discussed with the . Meds reconciled and reviewed with the . verbalized understanding of discharge instructions and medications. Pt discharge with left upper arm PICC, flores catheter, and rectal tube in place. Pt stable and nad noted upon leaving the floor.
== END 2019-01-26 17:15 | DRG 207 ==
LOC: ER 20:30 → DOU3 22:11 → TELE-TD3 01-21 01:19 → CCU 01-24 06:35 → TELE-TD3 01-24 18:55
PROVIDERS: ADMIT Nurse Practitioner Acute Care; ATTEND Nurse Practitioner Acute Care
PROC: 5A1955Z Respiratory Ventilation, Greater than 96 Consecutive Hours (ICD-10-PCS; principal; 2019-01-20)
DX: J96.21 Acute and chronic respiratory failure with hypoxia (principal); I50.23 Acute on chronic systolic (congestive) heart failure; I21.A1 Myocardial infarction type 2; G93.41 Metabolic encephalopathy; I33.0 Acute and subacute infective endocarditis; N17.0 Acute kidney failure with tubular necrosis; I13.0 Hypertensive heart and chronic kidney disease with heart failure and stage 1 through stage 4 chronic kidney disease, or unspecified chronic kidney disease; T85.628A Displacement of other specified internal prosthetic devices, implants and grafts, initial encounter; N39.0 Urinary tract infection, site not specified; Z99.11 Dependence on respirator [ventilator] status; E87.0 Hyperosmolality and hypernatremia; D68.59 Other primary thrombophilia; E44.0 Moderate protein-calorie malnutrition; J96.22 Acute and chronic respiratory failure with hypercapnia; N18.9 Chronic kidney disease, unspecified; E11.22 Type 2 diabetes mellitus with diabetic chronic kidney disease; I08.1 Rheumatic disorders of both mitral and tricuspid valves; B96.89 Other specified bacterial agents as the cause of diseases classified elsewhere; Z86.718 Personal history of other venous thrombosis and embolism; D63.8 Anemia in other chronic diseases classified elsewhere; R13.10 Dysphagia, unspecified; Z93.1 Gastrostomy status; Z87.891 Personal history of nicotine dependence; Z22.322 Carrier or suspected carrier of Methicillin resistant Staphylococcus aureus; I48.0 Paroxysmal atrial fibrillation; I45.10 Unspecified right bundle-branch block; H40.9 Unspecified glaucoma; K21.9 Gastro-esophageal reflux disease without esophagitis; I25.10 Atherosclerotic heart disease of native coronary artery without angina pectoris; E78.5 Hyperlipidemia, unspecified; Z74.01 Bed confinement status; I25.2 Old myocardial infarction; J44.9 Chronic obstructive pulmonary disease, unspecified; M48.00 Spinal stenosis, site unspecified; Z87.01 Personal history of pneumonia (recurrent)
CPT/HCPCS: 36415; 36600; 70030-TC; 71045; 76870; 83605; 83735; 84100; 85025; 85730; 86850; 86870; 86900; 86901; 87040; 87070; 87077; 87086; 87400; 93005; 93307; 94002; 94003; 94640; 94664; A4217; A4663; C1758; G0378; J0290; J0360; J0696; J1650; J1815; J1940; J2543; J2997; J3490; J7040; J7050; J7060; P9047